=== PATIENT | male | born 1990 | race African-American/Black ===

== ENCOUNTER 2016-05-17 11:00 | Emergency (ER) | payer OTHER ==
[~2016-05-17] VITALS: Ht 165.1 cm; Wt 61.8 kg
[2016-05-17 13:39] VITALS: BP 110/68
== END 2016-05-17 13:42 | disposition home or self-care (01) ==
LOC: EMS 11:02
DX: S00.83XA Contusion of other part of head, initial encounter (principal); W21.01XA Struck by football, initial encounter; Y93.61 Activity, american tackle football; Y92.9 Unspecified place or not applicable; Y99.9 Unspecified external cause status
CPT/HCPCS: 99281

== ENCOUNTER 2016-12-14 09:29 | Emergency (ER) | payer OTHER ==
[~2016-12-14] VITALS: Ht 165.1 cm; Wt 61.8 kg
[2016-12-14 10:38] VITALS: BP 120/62
[2016-12-14] MEDS ORDERED: IBUPROFEN 400 MG TABLET PO ONE (11:30)
== END 2016-12-14 11:50 | disposition home or self-care (01) ==
LOC: EMS 09:30
DX: S93.401A Sprain of unspecified ligament of right ankle, initial encounter (principal); F12.90 Cannabis use, unspecified, uncomplicated; F17.210 Nicotine dependence, cigarettes, uncomplicated; X50.9XXA Other and unspecified overexertion or strenuous movements or postures, initial encounter; Y93.67 Activity, basketball; Y92.89 Other specified places as the place of occurrence of the external cause; Y99.8 Other external cause status
CPT/HCPCS: 29515; 99284

== ENCOUNTER 2019-10-24 21:37 | Emergency (ER) | payer OTHER ==
[~2019-10-24] VITALS: Ht 165.1 cm; Wt 61.4 kg
[2019-10-24 23:55] VITALS: BP 125/63
== END 2019-10-25 00:08 | disposition home or self-care (01) ==
LOC: EMS 21:37
DX: S46.812A Strain of other muscles, fascia and tendons at shoulder and upper arm level, left arm, initial encounter (principal); F17.210 Nicotine dependence, cigarettes, uncomplicated; F12.90 Cannabis use, unspecified, uncomplicated; V89.2XXA Person injured in unspecified motor-vehicle accident, traffic, initial encounter; Y93.89 Activity, other specified; Y92.488 Other paved roadways as the place of occurrence of the external cause; Y99.8 Other external cause status
CPT/HCPCS: Z7502